=== PATIENT | male | born 2000 | race Caucasian/White ===

== ENCOUNTER 2022-04-11 09:30 | Emergency (ER) | payer BC, SELFPAY ==
[2022-04-11 10:18] VITALS: PULSE 66; RESP 16; TEMP 36.7; O2SAT 98; BMI 21.7
--- NOTE | 2022-04-11 12:06 | ED.MALEGU ---
HPI - Male Genitourinary General Time Seen by Provider: 12:07 Date Seen: 04/11/22 Chief complaint: Urogenital Problems, Male Stated complaint: Swelling, discomfort in testicles Time Seen by Provider: 04/11/22 12:06 Source: patient, RN notes reviewed and old records reviewed Mode of arrival: ambulatory Limitations: no limitations Related Data Home Medications Medication Instructions Recorded Confirmed No Known Home Medications 04/11/22 04/11/22 Allergies Allergy/AdvReac Type Severity Reaction Status Date / Time No Known Drug Allergies Allergy Verified 04/11/22 10:23 Exam Const: Vital Signs, click to edit/add: Vital Signs - 24 hr 04/11/22 10:18 Temperature 98.0 F Pulse Rate [Right Pulse Oximeter] 66 Respiratory Rate 16 Pulse Oximetry 98 Oxygen Delivery Me thod Room Air Course Vital Signs Vital signs: Initial Vital Signs Temperature 98.0 F 04/11/22 10:18 Temperature Source Temporal Artery Scan 04/11/22 10:18 Pulse Rate 66 04/11/22 10:18 Pulse Rhythm 04/11/22 10:18 Respiratory Rate 16 04/11/22 10:18 Pulse Oximetry 98 04/11/22 10:18 Oxygen Delivery Method 04/11/22 10:18 Vital Signs Temperature 98.0 F 04/11/22 10:18 Pulse Rate 66 04/11/22 10:18 Respiratory Rate 16 04/11/22 10:18 Pulse Oximetry 98 04/11/22 10:18 Oxygen Delivery Method 04/11/22 10:18 Temperature 98.0 F 04/11/22 10:18 Pulse Rate 66 04/11/22 10:18 Respiratory Rate 16 04/11/22 10:18 Pulse Oximetry 98 04/11/22 10:18 Oxygen Delivery Method 04/11/22 10:18 Discharge Plan Discharge Prescriptions: No Action No Known Home Medications
[2022-04-11 12:51] LABS: Appearance Urine Clear (Clear); Bilirubin Urine Negative (Negative); Blood Urine Negative (Negative); Color Urine Yellow (Yellow); Glucose Urine Negative (Negative); Ketones Urine Negative (Negative); Leukocyte Esterase Urine Negative (Negative); Nitrite Urine Negative (Negative); Protein Urine Negative (Negative); Specific Gravity Urine 1.025 (1.000-1.030); Urobilinogen Urine 0.2 (0.2-1.0)
--- NOTE | 2022-04-11 12:51 | ED_ITS ---
HPI - Male Genitourinary General Chief complaint: Urogenital Problems, Male Stated complaint: Swelling, discomfort in testicles Time Seen by Provider: 04/11/22 12:06 History of Present Illness HPI Narrative: 21-year-old young man presenting to the emergency department with complaint of r ight testicular pain and swelling. Apparently this has happened before and sometimes readjusting seems to solve the problem. Does not recall any particular trauma. Most recent event started yesterday evening and continued until arrival at the emergency department. Admittedly he is relatively symptom- free now. He did have exacerbation of pain somewhat well bending forward as well. Has no dysuria no pyuria. He has no concern of sexually transmitted infection; highly doubts possibility. Not engaging in risky behavior. No fever. No abdominal pain no nausea. It sounds as though he has concern about potential torsion. Had ejaculated some hours prior. By the time I am seeing this patient in a busy emergency department ultrasound has already been done. Is noted to have a subcentimeter left epididymal cyst, otherwise unremarkable. I asked him again about the location of his pain and he indicates the right testicular area. Related Data Home Medications Medication Instructions Recorded Confirmed No Known Home Medications 04/11/22 04/11/22 Allergies Allergy/AdvReac Type Severity Reaction Status Date / Time No Known Drug Allergies Allergy Verified 04/11/22 10:23 [facility] Social History Smoking Status: Never smoker How often do you have a drink containing alcohol: never AUDIT-C Alcohol total score: 0 Non-prescribed substance use: denies use Exam Narrative: Exam Narrative: Well-nourished pleasant. NAD. Skin is warm and dry. Abdomen flat soft and nontender. There is 1 lymph node in the right inguinal canal. Genitourinary exam is without any lesion or erythema. Right testicle is subtly larger than the left. He has no tenderness to palpation of the testicle or epididymal area. I do not appreciate any masses at this time. Const: Vital Signs, click to edit/add: Vital Signs - 24 hr 04/11/22 10:18 Temperature 98.0 F Pulse Rate [Right Pulse Oximeter] 66 Respiratory Rate 16 Pulse Oximetry 98 Oxygen Delivery Me thod Room Air Documenting provider has reviewed patient's vital signs: yes Course Vital Signs Vital signs: Initial Vital Signs Temperature 98.0 F 04/11/22 10:18 Temperature Source Temporal Artery Scan 04/11/22 10:18 Pulse Rate 66 04/11/22 10:18 Pulse Rhythm 04/11/22 10:18 Respiratory Rate 16 04/11/22 10:18 Pulse Oximetry 98 04/11/22 10:18 Oxygen Delivery Method 04/11/22 10:18 Vital Signs Temperature 98.0 F 04/11/22 10:18 Pulse Rate 66 04/11/22 10:18 Respiratory Rate 16 04/11/22 10:18 Pulse Oximetry 98 04/11/22 10:18 Oxygen Delivery Method 04/11/22 10:18 Temperature 98.0 F 04/11/22 10:18 Pulse Rate 66 04/11/22 10:18 Respiratory Rate 16 04/11/22 10:18 Pulse Oximetry 98 04/11/22 10:18 Oxygen Delivery Method 04/11/22 10:18 MDM - Male Genitourinary MDM Narrative Medical decision making narrative: Will yet collect urinalysis which ultimately was unremarkable. Exam does not clearly rise to the level of orchitis. Epididymal cysts can come and go. Lab Data Attestation: I reviewed the patient's lab results. Labs: Lab Results 04/11/22 Range/Units 12:23 Urine Color Yellow (Yellow) Urine Appearance Clear (Clear) Urine pH 7.0 (5.0-8.5) Ur Specific [place] 1.025 (1.000-1.030) Urine Protein Negative (Negative) Urine Glucose (UA) Negative (Negative) Urine Ketones Negative (Negative) Urine Blood Negative (Negative) Urine Nitrite Negative (Negative) Urine Bilirubin Negative (Negative) Urine Urobilinogen 0.2 (0.2-1.0) Ur Leukocyte Esterase Negative (Negative) Urine RBC 0-2 (0-2) Urine WBC 0-2 (0-5) Ur Squamous Epith Cells Few (None-Few) Urine Bacteria None (None) Discharge Plan Discharge Clinical Impression: Epididymal cyst, Right testicular pain Patient Disposition: Home, Self-Care Condition: Improved Instructions: Epididymitis (ED) Additional Instructions: Might want to wear briefs for a few days to elevate scrotal area as might be helpful with discomfort. Otherwise, ibuprofen or acetaminophen for discomfort. I will call you with the results of the urinalysis if they warrant further discussion. Prescriptions: No Action No Known Home Medications Stand Alone Forms: Proton Therapyth Info Instructions
[2022-04-11 13:12] LABS: RBC Urine 0-2 (0-2); Squamous Epithelial Cell Urine Few (None-Few); WBC Urine 0-2 (0-5)
== END 2022-04-11 12:44 | disposition home or self-care (01) ==
LOC: ED 12:29
PROVIDERS: Emergency Provider Family Medicine
DX: N50.3 Cyst of epididymis (principal)
CPT/HCPCS: 76870; 81001; 93976; 99283; 99284